=== PATIENT | male | born 1960 | race Caucasian/White ===

== ENCOUNTER 2019-04-12 16:04 | Emergency (ER) | payer BC ==
[~2019-04-12] VITALS: Ht 162.6 cm; Wt 82.2 kg
[2019-04-12 16:05] VITALS: Ht 162.6 cm; Wt 82.2 kg
--- NOTE | 2019-04-12 20:33 | ERD ---
ER Documentation Chief Complaint Chief Complaint L GROIN PAIN X 3 DAYS HPI The patient is a 58-year-old male, presenting to the ER because of left groin pain for the last 3 days intermittently, worse with walking, denies similar symp toms previously, denies fever, chills, neck pain, chest pain, dyspnea, abdominal pain, vomiting, dysuria, diarrhea. He does not smoke nor drink, works in construction Past medical history: None Past surgical history: Cholecystectomy, right inguinal herniorrhaphy ROS All systems reviewed and are negative except as per history of present illness. Medications Home Meds Active Scripts Ibuprofen* (Motrin*) 600 Mg Tab, 600 MG PO Q6H PRN for PAIN AND OR ELEVATED TEMP, #20 TAB Prov:AMADO DURAND MD 04/12/19 Allergies Allergies: Coded Allergies: No Known Allergy (Verified , 09/30/15) PMhx/Soc History of Surgery: Yes (CHOLECYSTECTOMY) Anesthesia Reaction: No Hx Neurological Disorder: No Hx Respiratory Disorders: No Hx Cardiac Disorders: No Hx Psychiatric Problems: No Hx Miscellaneous Medical Probl: No Hx Alcohol Use: No Hx Substance Use: No Hx Tobacco Use: No Physical Exam Vitals Vital Signs Date Temp Pulse Resp B/P (MAP) Pulse Ox O2 O2 Flow FiO2 Time Delivery Rate 04/12/19 97.6 73 20 162/89 96 16:05 (113) Physical Exam Const: No acute distress. Head: Atraumatic. Eyes: Normal Conjunctiva. ENT: Normal External Ears, Nose and Mouth. Neck: Full range of motion. No meningismus. Resp: Clear to auscultation bilaterally. Cardio: Regular rate and rhythm. Abd: Soft, non distended, normal bowel sounds, non tender. Skin: No petechiae or rashes. Back: No midline or flank tenderness. Ext: No cyanosis, or edema. Mild left groin tenderness, Neur: Awake and alert. No focal deficit Psych: Normal Mood and Affect. Result Diagram: 04/12/19204104/12/192041 Results 24 hrs Laboratory Tests Test 04/12/19 20:42 04/12/19 20:59 White Blood Count 11.7 10^3/ul Red Blood Count 5.76 10^6/ul Hemoglobin 15.9 g/dl Hematocrit 48.9 % Mean Corpuscular Volume 84.9 fl Mean Corpuscular Hemoglobin 27.6 pg Mean Corpuscular Hemoglobin Concent 32.5 g/dl Red Cell Distribution Width 13.6 % Platelet Count 249 10^3/UL Mean Platelet Volume 11.0 fl Immature Granulocytes % 0.300 % Neutrophils % % Lymphocytes % % Monocytes % % Eosinophils % % Basophils % % Nucleated Red Blood Cells % 0.0 /100WBC Immature Granulocytes # 0.030 10^3/ul Neutrophils # 10^3/ul Lymphocytes # 10^3/ul Monocytes # 10^3/ul Eosinophils # 10^3/ul Basophils # 10^3/ul Nucleated Red Blood Cells # 10^3/ul Sodium Level 139 mmol/L Potassium Level 4.4 mmol/L Chloride Level 104 mmol/L Carbon Dioxide Level 27 mmol/L Anion Gap 8 Blood Urea Nitrogen 20 mg/dl Creatinine 1.02 mg/dl Est Glomerular Filtrat Rate mL/min > 60 mL/min Glucose Level 102 mg/dl Calcium Level 9.0 mg/dl Total Bilirubin 0.3 mg/dl Direct Bilirubin 0.00 mg/dl Indirect Bilirubin 0.3 mg/dl Aspartate Amino Transf (AST/SGOT) 30 IU/L Alanine Aminotransferase (ALT/SGPT) 35 IU/L Alkaline Phosphatase 123 IU/L Total Protein 7.4 g/dl Albumin 4.0 g/dl Globulin 3.40 g/dl Albumin/Globulin Ratio 1.17 Lipase 99 U/L Bedside Urine pH (LAB) 5.5 Bedside Urine Protein (LAB) Trace Bedside Urine Glucose (UA) Negative Bedside Urine Ketones (LAB) Negative Bedside Urine Blood Negative Bedside Urine Nitrite (LAB) Negative Bedside Urine Leukocyte Esterase (L Negative Current Medications Medications Dose Sig/Sharad Start Time Status Last (Trade) Ordered Route PRN Stop Time Admin Dose Reason Admin Ketorolac 30 mg ONCE STAT 04/12/19 DC 04/12/19 Tromethamine IV 20:41 20:52 (Toradol) 04/12/19 20:43 Procedures/MDM MEDICAL MAKING DECISION: The patient is a 58-year-old male, presenting with acute left groin muscle strain, treated with Toradol 30 mg IV for pain with good response, is stable for outpatient follow-up The differential diagnoses considered include but are not limited to lymphadenopathy, left inguinal hernia, cystitis, BPH Departure Diagnosis: Primary Impression: Left groin pain Condition: Good Comments He was discharged with Motrin The patient's blood pressure was elevated (>120/80) but appears stable without evidence of hypertension emergency or urgency. The patient was counseled about the risks of hypertension and urged to pursue outpatient monitoring and therapy within a week with their primary care physician. I discussed the findings with the patient. I advised the patient to follow-up with the primary physician in about 2-3 days, sooner if needed and return if any concern. Disclaimer: Inadvertent spelling and grammatical errors are likely due to EHR/dictation software use and do not reflect on the overall quality of patient care. Also, please note that the electronic time recorded on this note does not necessarily reflect the actual time of the patient encounter. AMADO DURAND MD Apr 12, 2019 20:33
[2019-04-12] MEDS ORDERED: KETOROLAC 30 MG INJ IV STA (20:41)
[2019-04-12] MEDS ORDERED: IBUP-1542 PO (21:56)
[2019-04-12 22:03] VITALS: BP 148/90; PULSE 66; RESP 17
== END 2019-04-12 22:03 | disposition home or self-care (01) ==
LOC: E/R 16:04
DX: R10.32 Left lower quadrant pain (principal)
CPT/HCPCS: 36415; 80053; 81003; 83690; 85025; 96374; 99284; J1885